=== PATIENT | male | born 1990 | race Caucasian/White ===

== ENCOUNTER 2023-11-05 02:18 | Emergency (ER) | payer OTHER, SELFPAY ==
[~2023-11-05] VITALS: Ht 182.9 cm; Wt 103.7 kg
[2023-11-05 02:28] VITALS: TEMP 97
[2023-11-05] MEDS: NS 1,000 ML IV ONE (02:47)
[2023-11-05 02:48] LABS: VENOUS BASE EXCESS -2.2 (-2.0-2.0); VENOUS HCO3 23.6 MMOL/L (23.0-27.0); VENOUS PARTIAL PRESSURE CO2 44.2 mmHg (38.0-50.0); VENOUS PARTIAL PRESSURE O2 38.8 mmHg (30.0-50.0); VENOUS PH 7.346 UNITS (7.330-7.430); VENOUS STANDARD HCO3 22.1 MMOL/L
[2023-11-05 02:49] LABS: BASO % 0.3 % (0.0-1.0); EOS # 0.3 10^3/uL (0.0-0.5); EOS % 3.5 % (0.0-3.0); HEMATOCRIT 42.3 % (42.0-52.0); HEMOGLOBIN 14.6 g/dl (13.5-17.5); LYMPH % 33.3 % (24.0-44.0); MEAN CORPUSCULAR HEMOGLOBIN 30.5 pg (27.0-33.0); MEAN CORPUSCULAR HGB CONC 34.5 g/dl (32.0-36.5); MEAN CORPUSCULAR VOLUME 88.5 fl (80.0-96.0); MONO # 0.6 10^3/uL (0.0-0.8); MONO % 6.4 % (2.0-8.0); NEUTROPHILS % 55.8 % (36.0-66.0); PLATELET COUNT, AUTOMATED 250 10^3/uL (150-450); RED BLOOD COUNT 4.78 10^6/uL (4.30-6.10); WHITE BLOOD COUNT 8.9 10^3/uL (4.0-10.0)
[2023-11-05 03:13] LABS: CK-MB VALUE MASS < 1.0 NG/ML (<3.6); LIPASE 43 U/L (12-53)
[2023-11-05 03:15] LABS: ALBUMIN 3.9 G/DL (3.2-5.2); ALKALINE PHOSPHATASE 75 U/L (46-116); ALT/SGPT 25 U/L (7.0-40); AST/SGOT 11 U/L (<34); BILIRUBIN,DIRECT 0.1 MG/DL (<0.4); BILIRUBIN,TOTAL 0.4 MG/DL (0.3-1.2); BLOOD UREA NITROGEN 13 MG/DL (9-23); CALCIUM LEVEL 9.7 MG/DL (8.5-10.1); CARBON DIOXIDE LEVEL 31 MMOL/L (20-31); CHLORIDE LEVEL 107 MMOL/L (98-107); CPK CREATINE PHOSPHOKINASE 89 U/L (46-171); CREATININE FOR GFR 0.87 MG/DL (0.70-1.30); GLOMERULAR FILTRATION RATE > 60.0 (>60); GLUCOSE, FASTING 107 MG/DL (60-100); MB/CK RELATIVE INDEX 1.12 (< OR =4); POTASSIUM SERUM 3.6 MMOL/L (3.5-5.1); SODIUM LEVEL 141 MMOL/L (136-145)
[2023-11-05 03:16] LABS: THYROID STIMULATING HORMONE 2.498 uIU/ML (0.55-4.78)
[2023-11-05] MEDS ORDERED: ISOVUE-370 76% 100ML VIAL As Ordered ONE (03:27)
[2023-11-05 04:09] LABS: CK-MB VALUE MASS < 1.0 NG/ML (<3.6)
[2023-11-05 04:14] LABS: CPK CREATINE PHOSPHOKINASE 78 U/L (46-171); MB/CK RELATIVE INDEX 1.28 (< OR =4)
[2023-11-05] MEDS ORDERED: HOLTER MONITOR XX (04:24)
[2023-11-05 04:45] VITALS: BP 112/63; O2SAT 98
== END 2023-11-05 05:05 | disposition home or self-care (01) ==
LOC: M ED 02:18
DX: R00.2 Palpitations (principal); R07.89 Other chest pain
CPT/HCPCS: 70450; 71045; 71275; 80047; 80048; 80076; 82550; 82553; 82803; 83690; 84443; 84484; 85025; 93005; 93041; 94760; 96360; 96361; 99285; Q9967